=== PATIENT | female | born 2000 | race Hispanic/Latino ===

== ENCOUNTER 2022-10-20 20:33 | Emergency (ER) | payer BC ==
[2022-10-20] MEDS ORDERED: Ondansetron PF 4 MG/2 ML Vial ONE (21:20)
[2022-10-20] MEDS ORDERED: Ketorolac Tromethamine 30 MG/ML VIAL ONE (21:20)
[2022-10-20 21:47] LABS: #Monocytes 0.6 10x3/uL (0.0-1.1); #Neutrophils 14.6 10x3/uL (1.5-8.4); %Basophils 0.2 % (0.0-2.0); %Eosinophils 0.1 % (0.0-6.0); %Lymphocytes 4.3 % (18.0-47.0); %Monocytes 3.6 % (0.0-10.0); %Neutrophils 91.5 % (40.0-75.0); Hematocrit 39.9 % (34.9-44.5); Hemoglobin 13.9 g/dL (12.0-15.5); Mean Corpuscular HGB CONC 34.8 g/dL (32.0-36.0); Mean Corpuscular Hemoglobin 31.5 pg (27.0-33.0); Mean Corpuscular Volume 90.5 fl (81.6-98.3); Mean Platelet Volume 9.5 fl (7.4-10.4); Platelet Count 351 10x3/uL (150-450); RBC Distribution Width 12.9 % (11.5-14.5); Red Blood Cell (RBC) Count 4.41 10x6/uL (3.90-5.03); White Blood Cell (WBC) Count 15.9 10x3/uL (3.5-10.5)
[2022-10-20 21:55] LABS: BHCG - Serum Negative (NEGATIVE); Pregs Control Background? CLEAR/WHITE (CLR/WHITE); Pregs Control Bar Appear? YES (CONTROL BAR)
[2022-10-20 21:59] LABS: ALT (SGPT) 23 U/L (8-55); AST (SGOT) 25 U/L (5-34); Albumin 4.8 g/dL (3.5-5.0); Alkaline Phosphatase 114 U/L (40-110); Anion Gap 19 mmol/L (10-20); BUN (Urea Nitrogen) 15 mg/dL (7.0-18.7); Bilirubin, Total 0.5 mg/dL (0.2-1.2); Calc. Creatinine Clearance 0 mL/min (70-130); Carbon Dioxide 21 mmol/L (22-29); Chloride 100 mmol/L (98-107); Estimated GFR 87; Globulin 3.2 g/dL (2.4-3.5); Glucose 134 mg/dL (70-105); Lipase 6 U/L (8-78); Potassium 3.8 mmol/L (3.5-5.1); Sodium 136 mmol/L (136-145)
[2022-10-20 23:31] LABS: Bilirubin Neg (Negative); Blood, Urine 250 (Negative); Clarity Slightly Cloudy (Clear); Glucose, Urine (Dipstick) Normal (Negative); Ketone, Urine 50 mg/dL (Negative); Leukocyte Negative (Negative); Nitrite Positive (Negative); Protein, Urine (Dipstick) Negative (Neg-Trace); Urobilinogen Normal mg/dL (Less than 2)
[2022-10-20 23:49] LABS: Bacteria/HPF 1+ HPF (None Seen); CAUTI Indications for Culture Pelvic or flank pain; Squamous Epithelial 0-3 HPF (0-3)
[2022-10-20 23:50] LABS: Urine Culture Reflex No No
[2022-10-21] MEDS ORDERED: Morphine 2 MG/ML VIAL ONE (00:03)
[2022-10-21] MEDS ORDERED: cefTRIAXone (ROCEPHIN) 1 GM VIAL ONE (00:04)
== END 2022-10-21 01:10 | disposition home or self-care (01) ==
LOC: CSHERS 20:33
DX: N39.0 Urinary tract infection, site not specified (principal)
CPT/HCPCS: 76705; 80053; 81001; 83690; 84703; 85025; 87086; 96361; 96365; 96375; J0696; J1885; J2272; J2405